=== PATIENT | female | born 1990 | race Caucasian/White ===

== ENCOUNTER 2017-08-13 21:55 | Inpatient (IN) | payer OTHER ==
[2017-08-13] MEDS ORDERED: PROMETHAZINE HCL 25 MG/1 ML VIAL IVPUSH ONE (22:36)
[2017-08-13] MEDS ORDERED: BUTORPHANOL TARTRATE 1 MG/ML VIAL IVPB ONE (22:36)
[2017-08-13] MEDS ORDERED: DEXTROSE 5%-LACTATED RINGERS 1,000 ML IV SCH (22:45)
--- NOTE | 2017-08-13 22:49 | HP ---
Past Medical History - Primary Care Physician PCP:: Stacie Menendez - Admission Chief Complaint: 27 yrs , 40 weeks gestation onset LP since 5.00 PM History of Present Illness: PnC at ,[facility] wt gain 22 lbs work UP : 03/07/17 O Pos, Rpr nr, Hbsag neg, Rubella immune, CF neg, Hiv neg, Pap Nilm, Gc/Ct neg , Sickle neg 05/02/17 Quantiferon neg, 1 hr Gtt - 155, 3 hr Gtt wnl ( 88, 148, 124, 89) 07/20/17 Gbs neg, gc/ct neg, Hiv neg, h/h11.3/34.8,bdk105. 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 No: Constipation, GERD Hepatobiliary: No: Hepatitis B Renal/: No: UTI ...: 5 ...Para: 2 ( 01/22/2009 , 7'12", h/o Blood Transfusion ) ...Term: 2 ( 11/15/2015 7'10" ) ...Spon : 2 (03/2014 & 2015) ...LMP: 10/31/16 ... Weeks Gestation by Dates: 40.6 ...EDC by Dates: 08/07/17 ...EDC by Sono: 08/13/17 (40 weeks ) Heme/Onc: Yes: Anemia (after 01/2009 delivery, h/o 2 pack cell transfusion) Infectious Disease: No: AIDS, HIV, STD's, Tuberculosis Psych: No: Addictions, Anxiety, Bipolar, Depression, Panic, Schizophrenia Endocrine: No: Diabetes Mellitus, Hyperparathyroidism - Past Surgical History Past Surgical History: Yes: Appendectomy Hx Myomectomy: No Hx Transabdominal Cerclage: No - Smoking History Smoking history: Never smoked - Alcohol/Substance Use Hx Alcohol Use: No History of Substance Use: reports: None - Social History ADL: Independent Home Medications - Allergies Allergies/Adverse Reactions: Allergies Allergy/AdvReac Type Severity Reaction Status Date / Time dog dander Allergy Mild Itching Verified 11/15/15 01:23 cat dander Allergy Verified 11/15/15 01:23 - Home Medications Home Medications: Ambulatory Orders Vitamins (Sjr) - 1 tab PO DAILY 11/15/15 Physical Exam - Maternity Vital Signs: Selected Entries 08/13/17 21:55 Temperature 98.5 F Pulse Rate 72 Respiratory 20 Rate Blood Pressure 124/87 Weight 164 lb Constitutional: Yes: Well Nourished, Moderate Distress Eyes: Yes: WNL HENT: Yes: WNL, Normocephalic Neck: Yes: WNL Cardiovascular: Yes: WNL, Regular Rate and Rhythm Lungs: Clear to auscultation Breast(s): Yes: WNL - Abdominal Exam/OB Fundal Height: 40 Number of Fetuses: Single Presentation: Vertex Contractions: Yes Regularity: Regular (2- 4 min) Intensity: Moderate Monitor Mode: External Heart Rate (range): 150 Heart Rate Location: [facility] Category: I Accelerations: Uniform Decelerations: None - Vaginal Exam/OB Vaginal Bleediing: No Speculum Exam: No Dilatation (cm): 7 Effacement (%): 90 Amniotic Membrane Status: Intact Presentation: Vertex/Position (exam at 10.30 pm) Station: -2 - Physical Exam Musculoskeletal: Yes: WNL Extremities: Yes: WNL. No: Calf Tenderness Edema: Yes Edema: LLE: Trace, RLE: Trace Integumentary: Yes: WNL Deep Tendon Reflex Grade: Normal +2 ...Motor Strength: WNL Psychiatric: Yes: WNL, Alert, Oriented - Labs Lab Results: Laboratory Tests 08/13/17 08/13/17 08/13/17 22:40 22:40 22:40 WBC 6.7 Hgb 11.6 D Hct 35.3 D Plt Count 142 Neutrophils % 74.1 Lymphocytes % 18.6 PT with INR 10.50 INR 0.93 PTT (Actin FS) 26.6 L Sodium 139 Potassium 3.9 Chloride 107 Carbon Dioxide 25 BUN 12 Creatinine 0.5 L D Random Glucose 86 Problem List - Problems (1) 40 weeks gestation of Code(s): Z3A.40 - 40 WEEKS GESTATION OF (2) Labor established Code(s): EYT2567 - Assessment/Plan 27 yrs , 40 weeks in labor, Gbs neg Plan vaginal delivery
[2017-08-13 23:01] LABS: BASO % 0.4 % (0-2.0); EOS % 0.9 % (0-4.5); HEMATOCRIT 35.3 % (32.4-45.2); HEMOGLOBIN 11.6 GM/dL (10.7-15.3); LYMPH % 18.6 % (8-40); MCH 28.4 pg (25.7-33.7); MCHC 32.9 g/dl (32.0-36.0); MEAN CELL VOLUME 86.3 fl (80-96); MEAN PLT VOLUME 10.1 fl (7.5-11.1); NEUT % 74.1 % (42.8-82.8); PLATELET COUNT 142 K/MM3 (134-434); RBC 4.09 M/mm3 (3.60-5.2); RDW 14.6 % (11.6-15.6); WHITE BLOOD COUNT 6.7 K/mm3 (4.0-10.0)
[2017-08-13 23:05] VITALS: BMI 29.9
[2017-08-13 23:16] LABS: ANION GAP 7 (8-16); BLOOD UREA NITROGEN 12 mg/dL (7-18); CALCIUM 8.3 mg/dL (8.5-10.1); CHLORIDE 107 mmol/L (98-107); CO2 25 mmol/L (21-32); CREATININE 0.5 mg/dL (0.55-1.02); GLUCOSE,RANDOM 86 mg/dL (74-106); POTASSIUM 3.9 mmol/L (3.5-5.1); SODIUM 139 mmol/L (136-145)
[2017-08-13 23:23] LABS: INR 0.93 (0.82-1.09); PROTHROMBIN TIME (PATIENT) 10.5 SEC (9.98-11.88)
[2017-08-13 23:26] LABS: ACTIVATED PTT 26.6 SECONDS (26.9-34.4)
[2017-08-13] MEDS ORDERED: OXYTOCIN 20 UNITS in 0.9% NS 20 UNIT/1,000 ML INFUS.BAG IV ONE (23:45)
--- NOTE | 2017-08-14 00:18 | PN ---
Progress Note, Labor Vaginal Exam #1 Labor Exam Date: 09/13/17 Labor Exam Time: 23:55 Heart Rate (range): 170 Dilatation: 8-9 Effacement (%): 90 Amniotic Membrane Status: Ruptured (AROM , light meconium) Presentation: Vertex/Position Station: -1 (-1/0) Remarks: fhr cat-1 uc q2 -4 min Vaginal Exam #2 Labor Exam Date: 08/14/17 Labor Exam Time: 01:00 Heart Rate (range): 120-150 Dilatation: 10 Effacement (%): 100 Amniotic Membrane Status: Ruptured Presentation: Vertex/Position Station: +2 Remarks: fhr cat-1 uc 2-3 min pt pushing
[2017-08-14] MEDS: OXYTOCIN 20 UNITS in 0.9% NS 20 UNIT/1,000 ML INFUS.BAG IV SCH ×2 (01:10→03:10)
[2017-08-14] MEDS ORDERED: METHYLERGONOVINE MALEATE 0.2 MG/1 ML AMP IM PRN (01:37)
[2017-08-14] MEDS ORDERED: BENZOCAINE 20% 57 GM BOTTLE TP PRN (01:37)
[2017-08-14] MEDS ORDERED: WITCH HAZEL 50% (TUCKS) 40 PAD/JAR PAD TP PRN (01:37)
[2017-08-14] MEDS ORDERED: BISACODYL 10 MG SUPP.RECT RC PRN (01:37)
[2017-08-14] MEDS ORDERED: oxyCODONE HCL 5 MG TABLET PO PRN (01:37)
[2017-08-14] MEDS ORDERED: BENZOCAINE 28 GM HEMORRHOIDAL OINTMENT TP PRN (01:37)
--- NOTE | 2017-08-14 01:37 | PN ---
Delivery - Delivery Vaginal Delivery: No Problems, Spontaneous Episiotomy/Laceration: None EBL (cc): 350 Delivery, Single - Stages of Labor Date 1st Stage Initiatied: 08/13/17 Time 1st Stage Initiated: 17:00 Date 2nd Stage Initiated: 08/14/17 Time 2nd Stage Initiated: 01:00 Date of Delivery: 08/14/17 Time of Delivery: 01:02 Date Placenta Delivered: 08/14/17 Time Placenta Delivered: 01:10 Placenta: Yes: Spontaneous, Uterine Exploration - Condition of Pot Fisher/Post Doctoral Fellow Present: No Infant Gender: Female Weight: 8 lb 5 oz Position: Left, OA Total Hours ROM (Hrs/Mins): 1hr 15 min light mec - 1 Minute Total Score: 9 5 Minutes Total Score: 9 - [place] Feeding Plan Initial Plan: Elected not to breastfeed exclusively throughout hospitalization Remarks - Remarks Remarks: 27 yrs 40 weeks iup in labor, gbs neg pnc at 2, [facility] intrapartum course uneventful
[2017-08-14] MEDS ORDERED: IBUPROFEN 400 MG TABLET (FP) PO ONE (01:42)
[2017-08-14] MEDS: IBUPROFEN 600 MG TABLET (FP) PO PRN ×2 (02:10→17:21)
[2017-08-14] MEDS: ACETAMINOPHEN 325 MG TABLET (FP) PO PRN ×2 (02:10→17:22)
[2017-08-14] MEDS ORDERED: OXYTOCIN 20 UNITS in 0.9% NS 20 UNIT/1,000 ML INFUS.BAG IV ONE (02:43)
--- NOTE | 2017-08-15 03:48 | PN ---
Post Progress Note - Subjective Subjective: c/o cramps c/o cough to nurse Post Day: 1 Type of Delivery: Vital Signs: Vital Signs Temperature 97.9 F 08/14/17 21:31 Pulse Rate 78 08/14/17 21:31 Respiratory Rate 18 08/14/17 21:31 Blood Pressure 116/76 08/14/17 21:31 O2 Sat by Pulse Oximetry (%) 99 08/14/17 01:45 Breast Exam: Yes: Soft, Other (BF ). No: Engorged Uterus: Yes: Fundus Firm, Fundus below umbilicus, Non-tender Lochia: Yes: Rubra Lochia, amount: Moderate Extremities: Yes: Calves non-tender Perineum: Yes: Intact Activity: Ambulating - Labs Labs: CBC WBC 6.7 K/mm3 (4.0-10.0) 08/13/17 22:40 RBC 4.09 M/mm3 (3.60-5.2) 08/13/17 22:40 Hgb 11.6 GM/dL (10.7-15.3) D 08/13/17 22:40 Hct 35.3 % (32.4-45.2) D 08/13/17 22:40 MCV 86.3 fl (80-96) 08/13/17 22:40 MCH 28.4 pg (25.7-33.7) 08/13/17 22:40 MCHC 32.9 g/dl (32.0-36.0) 08/13/17 22:40 RDW 14.6 % (11.6-15.6) 08/13/17 22:40 Plt Count 142 K/MM3 (134-434) 08/13/17 22:40 MPV 10.1 fl (7.5-11.1) 08/13/17 22:40 Neutrophils % 74.1 % (42.8-82.8) 08/13/17 22:40 Lymphocytes % 18.6 % (8-40) 08/13/17 22:40 Monocytes % 6.0 % (3.8-10.2) 08/13/17 22:40 Eosinophils % 0.9 % (0-4.5) 08/13/17 22:40 Basophils % 0.4 % (0-2.0) 08/13/17 22:40 Laboratory Tests 08/15/17 09:49 pp anemia WBC 5.9 Hgb 9.7 L D Hct 30.1 L Plt Count 118 L Problem List - Problems (1) 40 weeks gestation of Code(s): Z3A.40 - 40 WEEKS GESTATION OF (2) Labor established Code(s): IIQ1254 - Assessment/Plan stable plan pp cbc today discharge tomorrow. . pp anemia noted
[2017-08-15] MEDS ORDERED: guaiFENesin 200 MG/10 ML 10 ML UNIT-DOSE CUPS PO PRN (08:13)
[2017-08-15 09:56] LABS: BASO % 0.3 % (0-2.0); EOS % 1.5 % (0-4.5); HEMATOCRIT 30.1 % (32.4-45.2); HEMOGLOBIN 9.7 GM/dL (10.7-15.3); LYMPH % 23.3 % (8-40); MCHC 32.1 g/dl (32.0-36.0); MEAN CELL VOLUME 87.1 fl (80-96); MEAN PLT VOLUME 8.9 fl (7.5-11.1); MONO % 4.7 % (3.8-10.2); NEUT % 70.2 % (42.8-82.8); PLATELET COUNT 118 K/MM3 (134-434); RBC 3.46 M/mm3 (3.60-5.2); RDW 14.3 % (11.6-15.6); WHITE BLOOD COUNT 5.9 K/mm3 (4.0-10.0)
[2017-08-15] MEDS ORDERED: SENNOSIDES/DOCUSATE COMBO (SENNA PLUS) TABLET (UD) PO PRN (22:00)
--- NOTE | 2017-08-16 08:05 | DS ---
Physical Exam-AUTO PARTS CLERK Vital Signs: Vital Signs Temperature 98.2 F 08/15/17 22:00 Pulse Rate 83 08/15/17 22:00 Respiratory Rate 18 08/15/17 22:00 Blood Pressure 116/78 08/15/17 22:00 O2 Sat by Pulse Oximetry (%) 99 08/14/17 01:45 Constitutional: Yes: Well Nourished, Pallor Eyes: Yes: WNL HENT: Yes: WNL Neck: Yes: WNL Cardiovascular: Yes: WNL Respiratory: Yes: WNL Gastrointestinal: Yes: WNL, Normal Bowel Sounds, Soft. No: Distention ...Rectal Exam: Yes: WNL Renal/: Yes: WNL External Genitalia: Yes: Normal ....Post : Yes: Uterus firm, Uterus non-tender, Moderate lochia rubra ( perineum intact) Breast(s): Yes: WNL (not engorged . BF) Musculoskeletal: Yes: WNL Extremities: Yes: WNL. No: Calf Tenderness Edema: Yes Edema: LLE: Trace, RLE: Trace Integumentary: Yes: WNL Wound/Incision: Yes: Excoriated Neurological: Yes: Alert, Oriented ...Motor Strength: WNL Psychiatric: Yes: WNL Labs: CBC, BMP 08/15/17 09:49 08/13/17 22:40 Delivery - Delivery Vaginal Delivery: No Problems, Spontaneous Type of Anesthesia: None Episiotomy/Laceration: None EBL (cc): 350 Delivery, Single - Stages of Labor Date 1st Stage Initiatied: 08/13/17 Time 1st Stage Initiated: 17:00 Date 2nd Stage Initiated: 08/14/17 Time 2nd Stage Initiated: 01:00 Date of Delivery: 08/14/17 Time of Delivery: 01:02 Time Placenta Delivered: 01:10 Placenta: Yes: Spontaneous, Uterine Exploration - Condition of Pigment Pumper/Classifier Operator Present: No Gender: Female Weight: 8 lb 5 oz Position: Left, OA Total Hours ROM (Hrs/Mins): 1hr 15 min light mec - 1 Minute Total Score: 9 5 Minutes Total Score: 9 - Feeding Plan Initial Plan: Elected not to breastfeed exclusively throughout hospitalization Remarks - Remarks Remarks: 27 yrs 40 weeks iup in labor, gbs neg pnc at [address] [place] [address] intrapartum course uneventful pp anemia counselled discharge today Discharge Summary Reason For Visit: LABOR ADMIT Current Active Problems 40 weeks gestation of (Acute) Anemia (Acute) Labor established (Acute) Normal spontaneous vaginal delivery (Acute) Condition: Stable - Instructions Diet, Activity, Other Instructions: Post Instructions DIET: Continue good diet high in protein, calcium, and iron rich foods. Drink at least eight (8) glasses of water daily in addition to other fluids. ct Regular diet MEDICATIONS: Continue vitamins and iron as previously directed. Motrin and Tylenol may be taken for minor discomfort. ACTIVITY: Mild to moderate exercise may be started in two (2) weeks. Take frequent rest periods. Resume normal activity after six (6) week check up. WOUND CARE OF OPERATIVE SITE: Continue use of perineal bottle until vaginal discharge stops. Keep area clean. Shower daily. Keep abdominal wound dry. Report any drainage or redness to physician. Tub baths, tampons and douches are not permitted for [address] Breast feeding & or Bottle feeding BREAST CARE: (For those that are not breast feeding): If engorgement occurs: Wear tight fitting bra. Take Tylenol or Motrin for pain. Apply cold packs (ice in bags to each breast ) FAMILY PLANNING: There are many control alternatives to pursue and they should be discussed at your first office visit. You may resume sexual activity after your six (6) week check up. (Remember, breast feeding is not a contraceptive) NEXT PHYSICIAN APPOINTMENT: Be certain to call for a six (6) week appointment, unless otherwise directed. Call Clinic or got to Emergency Dept if you have any of the following: Heavy vaginal bleeding Painful urination Leg pain Unusual odor noted to vaginal bleeding High fever Red streaking noted on breast Referrals: Stacie Menendez MD [Staff Physician] - Disposition: HOME - Home Medications Comprehensive Discharge Medication List: Ambulatory Orders Vitamins (Sjr) - 1 tab PO DAILY 11/15/15 Acetaminophen [Tylenol .Regular Strength -] 650 mg PO Q3H PRN tablet 08/15/17 Ferrous Sulfate [Slow Fe] 142 mg PO BID #60 tablet.er 08/15/17 Guaifenesin [Robitussin -] 10 ml PO Q4H PRN cup 08/15/17 Ibuprofen [Motrin -] 200 mg PO Q4H PRN tablet 08/15/17
[2017-08-16 08:11] VITALS: BP 125/75; PULSE 80; TEMP 97.6
== END 2017-08-16 12:15 | disposition home or self-care (01) | DRG 560 ==
LOC: JLDR 21:55 → J3W 08-14 03:37
PROVIDERS: ADMIT Obstetrics & Gynecology; ATTEND Obstetrics & Gynecology
PROC: 10E0XZZ Delivery of Products of Conception, External Approach (ICD-10-PCS; principal; 2017-08-14)
DX: O99.02 Anemia complicating childbirth (principal); Z3A.40 40 weeks gestation of pregnancy; Z37.0 Single live birth
CPT/HCPCS: 36415; 59409; 80048; 85025; 85610; 85730; 86593; 86850; 86900; 86901

== ENCOUNTER 2018-08-09 11:59 | Emergency (ER) | payer OTHER ==
[2018-08-09 12:31] VITALS: BP 122/86; PULSE 96; TEMP 98.4; BMI 28.3
[2018-08-09] MEDS ORDERED: predniSONE 20 MG TABLET (UD) PO ONE (12:49)
[2018-08-09] MEDS ORDERED: predniSONE 20 MG TABLET (UD) ONE (12:53)
--- NOTE | 2018-08-09 12:56 | PDOC ---
History of Present Illness - General Chief Complaint: Facial Droop Stated Complaint: FACIAL DROOP Time Seen by Provider: 08/09/18 12:33 History Source: Patient Exam Limitations: No Limitations - History of Present Illness Initial Comments: 08/09/18 12:50 28 yr female 3 weeks post op liposuction, buttocks lift presents today with left sided facial droop and "sore inside her mouth". no fever no chest pain or diff walking. pt denies arm or leg weakness, no diff speaking. no fever no chills no cough no leg pain. 08/09/18 19:46 Past History - Past Medical History Allergies/Adverse Reactions: Allergies Allergy/AdvReac Type Severity Reaction Status Date / Time dog dander Allergy Mild Itching Verified 08/09/18 12:28 cat dander Allergy Verified 08/09/18 12:28 Home Medications: Ambulatory Orders Acyclovir [Zovirax -] 400 mg PO 5XD #50 tablet 08/09/18 Prednisone [Deltasone] 20 mg PO BID #20 tablet 08/09/18 Prednisone [Deltasone] 60 mg PO DAILY #10 tablet 08/09/18 Asthma: No Cancer: No Cardiac Disorders: No COPD: No Diabetes: No HTN: No Seizures: No Thyroid Disease: No - Suicide/Smoking/Psychosocial Hx Smoking History: Never smoked Have you smoked in the past 12 months: No Hx Alcohol Use: No Drug/Substance Use Hx: No Hx Substance Use Treatment: No Neuro Specific PMHX - Complaint Specific PMHX Glaucoma: No Herniated Disk: No Laminectomy: No Migraine: No Multiple Sclerosis: No Neuropathy: No TIA: No Review of Systems - Review of Systems Able to Perform ROS?: Yes Is the patient limited Latvian proficient: No Constitutional: No: Symptoms Reported HEENTM: Yes: Symptoms Reported *Physical Exam - Vital Signs Last Vital Signs Temp Pulse Resp BP Pulse Ox 98.4 F 96 H 18 122/86 99 08/09/18 12:29 08/09/18 12:29 08/09/18 12:29 08/09/18 12:29 08/09/18 12:29 - Physical Exam General Appearance: Yes: Nourished, Appropriately Dressed HEENT: positive: EOMI, SHELLEY, Other (oral ulcer inside lower lip white center) Neck: positive: Supple. negative: Tender Respiratory/Chest: positive: Lungs Clear, Normal Breath Sounds. negative: Chest Tender Cardiovascular: positive: Regular Rhythm, Regular Rate Extremity: positive: Normal Capillary Refill, Normal Inspection, Normal Range of Motion Integumentary: positive: Normal Color, Dry, Warm Neurologic: positive: Fully Oriented, Alert, Normal Mood/Affect, Normal Response , Motor Strength 5/5, Numbness, Sensory Deficit (left face), Finger to Nose ( intact) Moderate Sedation - Procedure Monitoring Vital Signs: Procedure Monitoring Vital Signs Temperature 98.4 F 08/09/18 12:29 Pulse Rate 96 H 08/09/18 12:29 Respiratory Rate 18 08/09/18 12:29 Blood Pressure 122/86 08/09/18 12:29 O2 Sat by Pulse Oximetry (%) 99 08/09/18 12:29 Medical Decision Making - Medical Decision Making 08/09/18 19:47 cc: facial droop started this am , pt noticed sore in her mouth last night no fever no chills no chest pain pt unable to raise eyebrow left side of face, facial droop noted 5/5 upper and lower strength BANGURA well no headache stable vitals *DC/Admit/Observation/Transfer Diagnosis at time of Disposition: Zelaya's palsy, Ulcer aphthous oral - Discharge Dispostion Disposition: HOME Condition at time of disposition: Good - Prescriptions Prescriptions: Acyclovir [Zovirax -] 400 mg PO 5XD #50 tablet Prednisone [Deltasone] 60 mg PO DAILY #10 tablet Prednisone [Deltasone] 20 mg PO BID #20 tablet - Referrals Referrals: Wilfredo Greer MD [Staff Physician] - - Patient Instructions Printed Discharge Instructions: DI for Zelaya's Palsy Additional Instructions: please follow up with the internal medicine doctor listed below next week call today to make appointment start the medication as directed , start the antiviral today prednisone tomorrow return if any worsening symptoms - Post Discharge Activity
== END 2018-08-09 13:19 | disposition home or self-care (01) ==
LOC: JERFT 11:59
DX: G51.0 Bell's palsy (principal); K12.0 Recurrent oral aphthae
CPT/HCPCS: 99281-25

== ENCOUNTER 2023-09-14 16:18 | Inpatient (IN) | payer OTHER ==
[2023-09-14] MEDS ORDERED: BUTORPHANOL TARTRATE 2 MG/ML VIAL IVPUSH PRN (18:35)
[2023-09-14 18:46] VITALS: BMI 29.2
[2023-09-14 19:22] LABS: BASO % 0.2 % (0-2.0); EOS % 0.4 % (0-4.5); HEMATOCRIT 37.6 % (32.4-45.2); LYMPH % 16.2 % (8-40); MCH 32.4 pg (25.7-33.7); MCHC 34.7 g/dl (32.0-36.0); MEAN CELL VOLUME 93.4 fl (80-96); MONO % 3.9 % (3.8-10.2); NEUT % 79.3 % (42.8-82.8); PLATELET COUNT 145 10^3/uL (134-434); RBC 4.02 M/mm3 (3.60-5.2)
[2023-09-14 19:39] LABS: PROTHROMBIN TIME (PATIENT) 11.6 SEC (9.7-13.0)
[2023-09-14 19:40] LABS: POTASSIUM 3.5 mmol/L (3.5-5.1)
[2023-09-14] MEDS: DEXTROSE 5%-LACTATED RINGERS 1,000 ML IV SCH (19:40)
[2023-09-14 19:41] LABS: ACTIVATED PTT 28.4 SECONDS (25.2-36.5); CALCIUM 8.5 mg/dL (8.5-10.1)
[2023-09-14 19:42] LABS: BLOOD UREA NITROGEN 10.2 mg/dL (7-18)
[2023-09-14 19:45] LABS: CREATININE 0.4 mg/dL (0.55-1.3)
[2023-09-14] MEDS: MISOPROSTOL 25 MCG TABLET (COMPOUNDED BY PHARMACY) PO ONE (20:05)
[2023-09-14] MEDS ORDERED: FLURAZEPAM HCL 15 MG PO PRN (20:21)
[2023-09-14] MEDS: MISOPROSTOL 100 MCG TABLET PO ONE (20:49)
[2023-09-15] MEDS: ACETAMINOPHEN 325 MG TABLET (FP) PO PRN
[2023-09-15] MEDS ORDERED: ACETAMINOPHEN 325 MG TABLET (FP) ONE (00:02)
[2023-09-15] MEDS: MISOPROSTOL 100 MCG TABLET PO SCH (01:05)
[2023-09-15] MEDS ORDERED: ZOLPIDEM TARTRATE 5 MG TABLET ONE (01:10)
[2023-09-15] MEDS: ZOLPIDEM TARTRATE 5 MG TABLET PO PRN (01:15)
[2023-09-15] MEDS ORDERED: OXYTOCIN 30 UNITS in 0.9% NS 30 UNIT/500 ML INFUS.BAG IVPB ONE (10:54)
[2023-09-15] MEDS: OXYTOCIN 30 UNITS in 0.9% NS 30 UNIT/500 ML INFUS.BAG IVPB SCH (11:00)
[2023-09-15] MEDS ORDERED: BUTORPHANOL TARTRATE 2 MG/ML VIAL ONE ×2 (16:59→22:33)
[2023-09-15] MEDS: PROMETHAZINE HCL 25 MG/1 ML VIAL IVPB ONE ×2 (17:10→22:29)
[2023-09-15] MEDS: BUTORPHANOL TARTRATE 1 MG/ML VIAL IVPB ONE (17:10)
[2023-09-15] MEDS ORDERED: SODIUM CHLORIDE 100 ML IVPB ONE (22:33)
[2023-09-15] MEDS: BUTORPHANOL TARTRATE 2 MG/ML VIAL IVPB ONE (22:44)
[2023-09-16] MEDS ORDERED: OXYTOCIN 20 UNITS in 0.9% NS 20 UNIT/1,000 ML INFUS.BAG IV ONE (00:50)
[2023-09-16] MEDS: OXYTOCIN 20 UNITS in 0.9% NS 20 UNIT/1,000 ML INFUS.BAG IV SCH (02:00)
[2023-09-16] MEDS ORDERED: ACETAMINOPHEN 325 MG TABLET (FP) PO PRN (02:49)
[2023-09-16] MEDS ORDERED: WITCH HAZEL 50% (TUCKS) 40 PAD/JAR PAD TP PRN (02:49)
[2023-09-16] MEDS ORDERED: METHYLERGONOVINE MALEATE 0.2 MG/1 ML AMP IM PRN (02:49)
[2023-09-16] MEDS ORDERED: BENZOCAINE 20% 57 GM BOTTLE TP PRN (02:49)
[2023-09-16] MEDS ORDERED: BENZOCAINE 28 GM HEMORRHOIDAL OINTMENT TP PRN (02:49)
[2023-09-16 09:27] VITALS: BP 115/74; PULSE 88; RESP 20; TEMP 98.6
[2023-09-16] MEDS: IBUPROFEN 600 MG TABLET (FP) PO PRN (09:32)
== END 2023-09-16 14:15 | disposition home or self-care (01) | DRG 560 ==
LOC: JDEL 16:18 → JLDR 17:44 → J3W 09-16 04:50
PROVIDERS: ADMIT Obstetrics & Gynecology; ATTEND Obstetrics & Gynecology
PROC: 10E0XZZ Delivery of Products of Conception, External Approach (ICD-10-PCS; principal; 2023-09-16)
PROC: 10907ZC Drainage of Amniotic Fluid, Therapeutic from Products of Conception, Via Natural or Artificial Opening (ICD-10-PCS; 2023-09-16)
DX: O36.4XX0 Maternal care for intrauterine death, not applicable or unspecified (principal); Z3A.33 33 weeks gestation of pregnancy; Z37.1 Single stillbirth
CPT/HCPCS: 36415; 59025; 76819-TC; 80048; 85025; 85384; 85610; 85730; 86780; 86850; 86900; 86901; 88307-TC